=== PATIENT | male | born 2000 | race Caucasian/White ===

== ENCOUNTER → 2023-10-15 | Outpatient (CLI) | payer OTHER ==
--- NOTE | 2023-10-15 13:47 | XR ---
EXAMINATION TYPE: XR lumbosacral spine min 4V, XR thoracic spine complete DATE OF EXAM: 10/15/2023 1:40 PM CLINICAL INDICATION:Male, 23 years old with history of [id number] BACK PAIN; [facility] COMPARISON: None TECHNIQUE: XR lumbosacral spine min 4V, XR thoracic spine complete - Frontal, lateral , bilateral obl ique and coned in L5-S1 lateral views of the spine. Frontal and lateral views of the thoracic spine. FINDINGS: No evidence of any acute osseous pathology. Pathology of the midthoracic spine vertebral b odies. The 20% height loss anteriorly. No evidence of loss of vertebral body height is otherwise seen . There is normal alignment of the lumbar vertebral bodies. No significant degeneration changes throu ghout the spine. IMPRESSION: 1. No acute fracture. 2. Mild wedging of the midthoracic spine otherwise, no significant disc degeneration.
== END | disposition home or self-care (01) ==
LOC: RADXRYALE 13:14
PROVIDERS: ATTEND Internal Medicine
DX: M54.6 Pain in thoracic spine (principal); M54.51 Vertebrogenic low back pain
CPT/HCPCS: 72072; 72110

== ENCOUNTER 2024-02-23 20:29 | Emergency (ER) | payer SELFPAY ==
[2024-02-23 20:34] VITALS: RESP 16; TEMP 97.8
--- NOTE | 2024-02-23 20:55 | ED ---
URI HPI - General Chief Complaint: Upper Respiratory Infection Stated Complaint: Body aches Time Seen by Provider: 02/23/24 20:45 Source: patient, RN notes reviewed Mode of arrival: ambulatory Limitations: no limitations - History of Present Illness Initial Comments: 44-year-old male presenting with bodyaches x 1 day with associated nasal congestion, dry cough, and sore throat. Patient does admit he has a history of asthma but denies wheezing or shortness of breath. States he has family members with similar symptoms. Would like COVID testing today. States he took Motrin prior to arrival which has been improving symptoms. He is also complaining of tooth pain x 2 days. He has known dental caries and believes he has a dental infection. He is able to swallow and tolerate orals. - Related Data Previous Rx's Medication Instructions Recorded Amoxic-Pot Clav 875-125Mg 1 tab PO Q12HR 7 Days #14 tab 02/23/24 [Augmentin 875-125] Allergies Allergy/AdvReac Type Severity Reaction Status Date / Time No Known Allergies Allergy Verified 02/23/24 20:33 Review of Systems ROS Statement: Those systems with pertinent positive or pertinent negative responses have been documented in the HPI. ROS Other: All systems not noted in ROS Statement are negative. Past Medical History Past Medical History: Hypertension History of Any Multi-Drug Resistant Organisms: None Reported Past Surgical History: No Surgical Hx Reported Past Psychological History: Bipolar Smoking Status: Current every day smoker Past Alcohol Use History: None Reported Past Drug Use History: Marijuana General Exam Limitations: no limitations General appearance: alert, in no apparent distress Head exam: Present: atraumatic, normocephalic, normal inspection Eye exam: Present: normal appearance, PERRL, EOMI. Absent: scleral icterus, conjunctival injection, periorbital swelling ENT exam: Present: normal exam, mucous membranes moist. Absent: normal oropharynx (Diffuse dental caries, no fluctuant masses present) Neck exam: Present: normal inspection. Absent: tenderness, meningismus, lymphadenopathy Respiratory exam: Present: normal lung sounds bilaterally. Absent: respiratory distress, wheezes, rales, rhonchi, stridor Cardiovascular Exam: Present: regular rate, normal rhythm, normal heart sounds. Absent: systolic murmur, diastolic murmur, rubs, gallop, clicks Neurological exam: Present: alert, oriented X3 Psychiatric exam: Present: normal affect, normal mood Skin exam: Present: warm, dry, intact, normal color. Absent: rash Course Vital Signs 02/23/24 20:30 Temperature 97.8 F Pulse Rate 84 Respiratory 16 Rate Blood Pressure 143/87 O2 Sat by Pulse 98 Oximetry Medical Decision Making - Medical Decision Making Was pt. sent in by a medical professional or institution (, [place], [facility], urgent care, hospital, or senior care...) When possible be specific @ -No Did you speak to anyone other than the patient for history (EMS, parent, family, police, friend...)? What history was obtained from this source @ -No Did you review nursing and triage notes (agree or disagree)? Why? @ -I reviewed and agree with nursing and triage notes Were old charts reviewed (outside hosp., previous admission, EMS record, old EKG, old radiological studies, urgent care reports/EKG's, senior care records)? Report findings @ -No old charts were reviewed Differential Diagnosis (chest pain, altered mental status, abdominal pain women, abdominal pain men, vaginal bleeding, weakness, fever, dyspnea, syncope, headache, dizziness, GI bleed, back pain, seizure, CVA, palpatations, mental health, musculoskeletal)? @ -Viral URI, COVID, influenza, strep pharyngitis, bronchitis, pneumonia, dental infection, dental abscess EKG interpreted by me (3pts min.). @ -None X-rays interpreted by me (1pt min.). @ -None done CT interpreted by me (1pt min.). @ -None done U/S interpreted by me (1pt. min.). @ -None done What testing was considered but not performed or refused? (CT, X-rays, U/S, labs)? Why? @ -Patient declines chest x-ray today, I believe this is reasonable as symptoms have been ongoing for 1 day, patient is afebrile and lungs are clear to auscultation bilaterally What meds were considered but not given or refused? Why? @ -None Did you discuss the management of the patient with other professionals (professionals i.e. AGUSTIN Asher, [facility], lab, RT, psych nurse, director of social services, engineering inspection assistant, teacher, parachute officer, casey saw operator)? Give summary @ -No Was smoking cessation discussed for >3mins.? @ -No Was critical care preformed (if so, how long)? @ -No Were there social determinants of health that impacted care today? How? (Homelessness, low income, unemployed, alcoholism, drug addiction, transportation, low edu. Level, literacy, decrease access to med. care, prison, rehab)? @ -No Was there de-escalation of care discussed even if they declined (Discuss DNR or withdrawal of care, Hospice)? DNR status @ -No What co-morbidities impacted this encounter? (DM, HTN, Smoking, COPD, CAD, Cancer, CVA, ARF, Chemo, Hep., AIDS, mental health diagnosis, sleep apnea, morbid obesity)? @ -None Was patient admitted / discharged? Hospital course, mention meds given and route, prescriptions, significant lab abnormalities, going to OR and other pertinent info. @ -Patient was discharged. This is a 24-year-old male presenting with bodyaches x 1 day with associated sore throat, nasal congestion, and dry cough. Patient is also having dental pain. Vital signs are within normal limits, no acute distress. Lungs are clear to auscultation bilaterally. No sign of fluctuant masses or abscess in oral cavity, however there is diffuse dental caries. Flu, COVID, and RSV negative. Discussed diagnosis of viral URI and dental infection with patient. Prescribed Augmentin for antibacterial coverage. Advised to follow-up with dentist. Supportive care and return precautions discussed and patient is agreeable to plan. Case was discussed with my ED attending Dr. Camacho. Patient discharged in stable condition. Undiagnosed new problem with uncertain prognosis? @ -No Drug Therapy requiring intensive monitoring for toxicity (Heparin, Nitro, Insulin, Cardizem)? @ -No Were any procedures done? @ -No Diagnosis/symptom? @ -Viral upper respiratory infection, dental infection Acute, or Chronic, or Acute on Chronic? @ -Acute Uncomplicated (without systemic symptoms) or Complicated (systemic symptoms)? @ -Uncomplicated Side effects of treatment? @ -No Exacerbation, Progression, or Severe Exacerbation? @ -No Poses a threat to life or bodily function? How? (Chest pain, USA, SC, pneumonia, PE, COPD, DKA, ARF, appy, cholecystitis, CVA, Diverticulitis, Homicidal, Suicidal, threat to staff... and all critical care pts) @ -No - Lab Data Lab Results 02/23/24 02/23/24 Range/Units 20:59 20:59 Influenza Type A (PCR) Not Detected (Not Detectd) Influenza Type B (PCR) Not Detected (Not Detectd) RSV (PCR) Not Detected (Not Detectd) SARS-CoV-2 (PCR) Not Detected (Not Detectd) Group A Strep (PCR) NOT DETECTED (Not Detectd) Disposition Clinical Impression: Dental infection, Viral URI Disposition: HOME SELF-CARE Condition: Stable Instructions (If sedation given, give patient instructions): Dental Abscess (ED), Upper Respiratory Infection (ED) Additional Instructions: Lease take Augmentin as prescribed for dental infection. Follow-up with dentist as discussed. Take ibuprofen or Tylenol as needed for pain. Please return to the Emergency Department if symptoms worsen or any other concerns. Prescriptions: Amoxic-Pot Clav 875-125Mg [Augmentin 875-125] 1 tab PO Q12HR 7 Days #14 tab Is patient prescribed a controlled substance at d/c from ED?: No Referrals: Merline Castillo MD [Primary Care Provider] - 1-2 days Time of Disposition: 22:35
[2024-02-23 22:41] VITALS: BP 155/79; PULSE 77
== END 2024-02-23 22:42 | disposition home or self-care (01) ==
LOC: EC 20:29
CPT/HCPCS: 87636; 87651; 99283